=== PATIENT | male | born 1950 | race Caucasian/White ===

== ENCOUNTER 2017-03-20 21:17 | Inpatient (IN) | payer OTHER ==
[~2017-03-20] VITALS: Ht 185.4 cm; Wt 52.8 kg
--- NOTE | ~2017-03-20 | 2DMMODE ---
[facility] [address] [facility] [employer] [place] [address] 2 D/M-MODE ECHOCARDIOGRAM Name: EDWINA COOK Room #: 247-P ADM IN .R.#: [id number] Admission: 03/20/17 Attend Phys: Milton Fenton Discharge: Date of : 46 Date of Service: 03/24/17 1039 Report #: [id number] THIS REPORT FOR: //name// APPROVED REPORT Study performed: 03/24/2017 08:31:33 EXAM: Comprehensive 2D, Doppler, and color-flow Echocardiogram Patient Location: Bedside Room #: 247 Status: routine Other Information Study Quality: Good Indications Elevated troponin. Hx: HTN, tobacco 2D Dimensions RVDd: 24.87 mm LVEF(%): 43.95 (>50%) IVSd: 13.14 (7-11mm) LVOT Diam: 24.18 (18-24mm) LVDd: 43.90 mm PWd: 7.62 (7-11mm) Ascending Ao: 29.27 (22-36mm) LVDs: 34.43 (25-40mm) Aortic Root: 34.56 mm Butts's LVEF: 43.95 % Volumes Left Atrial Volume (Systole) Single Plane 4CH: 32.35 mL Single Plane 2CH: 69.42 mL LA ESV Index: 33.00 mL/m2 Aortic Valve AoV Peak Jeferson.: 1.27 m/s AO Peak Gr.: 6.49 mmHg LVOT Max P.71 mmHg LVOT Max V: 0.96 m/s MEGAN Vmax: 3.47 cm2 Mitral Valve E/A Ratio: 1.6 MV Decel. Time: 100.00 ms MV E Max Jeferson.: 0.76 m/s MV A Jeferson.: 0.49 m/s MV PHT: 29.00 ms IVRT: 107.27 ms [facility] [place] [address] 2 D/M-MODE ECHOCARDIOGRAM Name: EDWINA COOK Room #: 247-P [facility]#: [id number] Admission: 03/20/17 Attend Phys: Milton Fenton Discharge: Date of : 46 Date of Service: 03/24/17 1039 Report #: [id number] Pulmonary Valve PV Peak Jeferson.: 1.07 m/s PV Peak Gr.: 4.57 mmHg Pulmonary Vein P Vein S: 0.67 m/s P Vein D: 0.86 m/s P Vein S/D Ratio: 0.78 Tricuspid Valve TR Peak Jeferson.: 3.42 m/s RAP Estimate: 10.00 mmHg TR Peak Gr.: 46.81 mmHg PA Pressure: 57.00 mmHg Left Ventricle The left ventricle is normal size. Hypokinesis of inferolateral wall. Mild concentric left ventricular hypertrophy. Left ventricular systolic function is mildly decreased. LVEF is 45%. This study is not technically sufficient to allow evaluation of the LV diastolic function. Right Ventricle The right ventricle is normal size. Right ventricle is mildly hypokinetic. Atria Left atrium is dilated. Right atrium is dilated. Aortic Valve The aortic valve is normal in structure. No aortic regurgitation. There is no aortic valvular stenosis. Mitral Valve The mitral valve is normal in structure. Mild to moderate mitral regurgitation. No evidence of mitral valve stenosis. Tricuspid Valve The tricuspid valve is normal in structure. There is moderate tricuspid regurgitation. The right atrial pressure is estimated at 10 mmHg. There is moderate pulmonary hypertension with an estimated PAP of 57mmHg. Pulmonic Valve The pulmonary valve is normal in structure. Mild pulmonic regurgitation. [place] [id number] 2 D/M-MODE ECHOCARDIOGRAM Name: JOEYEDWINA Nelson Room #: 247-P [facility].#: [id number] Admission: 03/20/17 Attend Phys: Milton Fenton Discharge: Date of : 46 Date of Service: 03/24/17 1039 Report #: [id number] Great Vessels The aortic root is normal in size. IVC is normal in size and collapses <50% with inspiration. Pericardium Moderatel pericardial effusion noted. Large left pleural effusion noted. <Conclusion> Left ventricular systolic function is mildly decreased. LVEF is 45%. Hypokinesis of inferolateral wall. Both atria are mildly dilated. The aortic valve is normal in structure. No aortic valvular stenosis. No aortic regurgitation. The mitral valve is normal in structure. Mild to moderate mitral regurgitation. There is moderate pulmonary hypertension with an estimated PAP of 57mmHg. Moderatel pericardial effusion noted. Large left pleural effusion noted. <ELECTRONICALLY SIGNED> By: Telly Pa MD, [facility] 03/24/17 1039 1039 1039 Telly Pa MD, FAC /INF
--- NOTE | ~2017-03-20 | EKG ---
[address] [address] ELECTROCARDIOGRAM REPORT Name: EDWINA COOK Room #: 461- ADM IN M.R.#: [id number] Admission: 03/20/17 Attend Phys: Milton Carter Discharge: Date of : 46 Report #: [id number] THIS REPORT FOR: //name// [facility] Test Date: 2017-03-27 Test Time: 17:26:44 Pat Name: EDWINA COOK Department: Room: 461 Gender: M [employer] Sniper: DANIEL : 1950 Requested By: Milton Carter Order Number: [id number] MD: Jack France Measurements Intervals [place] Rate: 167 P: 84 [place]: 136 QRS: 86 QRSD: 97 T: 83 QT: 311 QTc: 519 Interpretive Statements Supraventricular tachycardia LVH with secondary repolarization abnormality Anterior infarct, old ST depression, probably rate related Electronically Signed On 03-27-2017 22:07:45 CDT by Jack France [email or web address] <ELECTRONICALLY SIGNED> By: Jack France MD 03/27/177 25 25 Jack France MD /JEANE
--- NOTE | ~2017-03-20 | EKG ---
[address] [address] ELECTROCARDIOGRAM REPORT Name: EDWINA COOK Room #: 247-P ADM IN M.R.#: [id number] Admission: 03/20/17 Attend Phys: Milton Carter Discharge: Date of : 46 Report #: [id number] THIS REPORT FOR: //name// [facility] Test Date: 2017-03-24 Test Time: 02:53:58 Pat Name: EDWINA COOK Department: Room: [facility] Gender: M Supervisor Assembling: . : 1950 Requested By: Taty Chester Order Number: [id number] MD: Jack France Measurements Intervals [place] Rate: 88 P: 85 [place]: 142 QRS: 95 QRSD: 94 T: 80 QT: 374 QTc: 453 Interpretive Statements Sinus rhythm Left atrial enlargement Right axis deviation Baseline wander in lead(s) V3 Compared to ECG 03/20/2017 21:47:36 Right-axis deviation now present Atrial premature complex(es) no longer present Q waves no longer present Myocardial infarct finding no longer present Electronically Signed On 03-24-2017 14:40:16 CDT by Jack France [email or web address] <ELECTRONICALLY SIGNED> By: Jack France MD 03/24/17 1440 2 2 Jack France MD /EPI
--- NOTE | ~2017-03-20 | HC ---
[facility] [address] [address] CONSULTATION Name: EDWINA COOK Room #: 461-P ADM IN M.R.#: [id number] Admission: 03/20/17 Attend Phys: Milton Carter Discharge: Date of : 46 Report #: [id number] THIS REPORT FOR: //name// CC: Milton Brandt Singh DATE OF SERVICE: 03/23/2017 HISTORY OF PRESENT ILLNESS: The patient is a 66-year-old white male who fell at home and was unable to get up. His had noted that he was gradually becoming weaker and weaker and had 8 falls. She indicated she had finally "had enough." He also has had a 30-pound weight loss over the past year. Upon admission, radiographic evaluation revealed a left lung mass with possible underlying pneumonia. He was seen by Psychiatry, diagnosed with depression with recommendations for Remeron. There also were recommendations for the patient to nominate the DPOA. The patient's Plavix has been held and the plan is for a bronchial biopsy in a couple of days. He is very weak and debilitated and we are seeing him in rehabilitation medicine consultation. Apparently, he has lost up to 100 pounds per chart notes as he is now 6 feet 1 and only weighs 98 pounds. PAST MEDICAL HISTORY: Includes polio as a child with some mild residual left-sided weakness, did not need to utilize gait aids or any bracing; history of hypertension, bilateral hernia repair surgery, anxiety; smoker, stopped 1 month ago; GERD, depression, 2 stents in his leg for which he was taking Plavix. HABITS: Former smoker. He did smoke 1 pack per day for 20 years. No history of ETOH abuse. ALLERGIES: No known drug allergies. FAMILY HISTORY: Noncontributory. SOCIAL HISTORY: House, spouse, one step in. Did not utilize gait aids. Notes indicate that family has been unable to meet the patient's care needs as he was not allowing them to help. REVIEW OF SYSTEMS: No current complaints of chest pain, shortness of breath or abdominal discomfort. His main complaint is being overall weak. Did not offer any focal extremity pain complaints. No complaints of headache or bowel or bladder changes. PHYSICAL EXAMINATION: GENERAL: A 66-year-old white male, very thin and cachectic. He is alert, currently on nasal prong O2. VITAL SIGNS: Last recorded temperature 97.5, pulse 90, respirations 20, blood [address] [address] CONSULTATION Name: EDWINA COOK Room #: 461-P [facility]#: [id number] Admission: 03/20/17 Attend Phys: Milton Carter Discharge: Date of : 46 Report #: [id number] pressure 141/92. NEUROLOGIC: Facies are symmetric. He has functional range of motion of both upper extremities with strength grade 3+/5. DTRs are trace to 1. Lower extremities, no focal calf swelling, functional range of motion with strength grade 3+/5. DTRs are trace to 1. He is min assist with sit to stand. He is ambulating 50 feet min assist with a front-wheeled walker. ASSESSMENT: A 66-year-old white male with the following problem list: 1. Generalized weakness and debilitation with multiple recent falls. 2. Left lung mass, probable carcinoma. To have bronchoscopy. Plavix is currently on hold. 3. Pneumonia, post-obstructive. 4. Hyponatremia, likely syndrome of inappropriate antidiuretic hormone secretion. The patient apparently has had some chronic low sodium. 5. Chronic obstructive pulmonary disease. 6. Hypertension. 7. Depression. 8. Past history of tobacco abuse. PLAN: The patient is continuing to work in therapies. He is to have the endoscopy later this week. We will follow along with you regarding his rehab therapy needs. <ELECTRONICALLY SIGNED> By: Joe Cho MD 03/29/17 1518 1415 0134 Joe Cho MD /nt
--- NOTE | ~2017-03-20 | HC ---
[facility] [place] [address] CONSULTATION Name: EDWINA COOK Room #: 427-P ADM IN M.R.#: [id number] Admission: 03/20/17 Attend Phys: Milton Carter Discharge: Date of : 46 Report #: [id number] THIS REPORT FOR: //name// CC: Milton Winters PRIMARY CARE PHYSICIAN: Dr. Oswaldo Holguin. REFERRING PHYSICIAN: Dr. Milton Carter. REASON FOR REFERRAL: Lung mass. HISTORY OF PRESENT ILLNESS: The patient is a 66-year-old white male who was brought to the Emergency Room with progressive weakness and follow. Chest x-ray and chest CT showed abnormalities. A pulmonary consultation was requested. The patient states that he has been losing weight for the past year. This occurred following his inguinal herniorrhaphy about a year ago. He states that he has just lost his appetite. The patient also has smoked 4 packs a day. He quit less than a month ago. He has known COPD. Otherwise, he has been getting progressively weaker over the past year. He denies any chest pain, night sweats or chills or productive cough or hemoptysis. Chest x-ray and chest CT performed in the Emergency Room showed a large left hilar mass with mediastinal involvement, with extension of the lung mass to the portion of the thoracic spine, small left-sided pleural effusion. Renal cysts are noted. Liver cyst is also noted. There is a questionable liver lesion, but it is likely a liver cyst. PAST MEDICAL HISTORY: Remarkable for polio lifelong with left-sided weakness, tobacco abuse, smoking at least 4 packs a day for most of his life until about a month ago when he quit, hypertension, gastroesophageal reflux disease, depression, peripheral vascular disease, undergoing stent placement in his lower extremities. PAST SURGICAL HISTORY: Include bilateral herniorrhaphy in 2016, bilateral eye surgery and as also mentioned above. ALLERGIES: None to medications. HOME MEDICATIONS: Include nicotine patch, diltiazem, Xanax, Toprol-XL, Protonix, Plavix and Zestril. FAMILY HISTORY: Notable for breast cancer in mother who in the 50s. [facility] [address] [place] [address] CONSULTATION Name: EDWINA COOK Room #: 427-P [facility] .R.#: [id number] Admission: 03/20/17 Attend Phys: Milton Carter Discharge: Date of : 46 Report #: [id number] SOCIAL HISTORY: He is , lives with family. Tobacco history: As above. He denies any alcohol use. He used to work in [employer]. REVIEW OF SYSTEMS: As mentioned above, otherwise 10-point system review negative. PHYSICAL EXAMINATION: GENERAL: He is awake and alert, who appears quite weak. He appears moderately emaciated with muscle atrophy. VITAL SIGNS: Temperature is 98 degrees Fahrenheit, pulse is 73, respiratory rate is 20, blood pressure 140/91 mmHg, saturation is 99% on supplemental O2. HEENT: Normocephalic, atraumatic. NECK: Supple, without any lymphadenopathy or thyromegaly. CHEST: Breath sounds are fair. No obvious wheezes or rales. CARDIOVASCULAR: Heart sounds, normal S1, S2. There are no murmurs or gallop. There is no JVD. There is no carotid bruit. Pulses are 2+/4+ bilaterally. ABDOMEN: Soft, nontender, no organomegaly or masses felt. GENITOURINARY: Deferred. RECTAL: Deferred. EXTREMITIES: There is no edema, cyanosis or clubbing. MUSCULOSKELETAL: Remarkable for moderate muscle atrophy/cachexia. LABORATORY DATA: CT chest and chest x-ray as mentioned above. Sodium 122, potassium 4.0, chloride 84, CO2 is 35, BUN is 8, creatinine 0.4, alkaline phosphatase 131, WBC 24,400, hemoglobin is 12.6, platelets are mildly increased. No bandemia is noted. Albumin 1.8. IMPRESSION: 1. Left hilar lung mass in this 66-year-old white male with mediastinal involvement along with possible thoracic spine involvement. He has had a progressive weight loss over the past year. The patient has smoked about four packs a day for most of his life until about a month ago. 2. 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 3. 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 4. Acute hypoxic respiratory failure. 5. Profound protein-calorie malnutrition, cachexia due to above. 6. Hyponatremia. 7. Leukocytosis, may be reactive, but cannot rule out component of post-obstructive pneumonia. 8. Hypertension. 9. Gastroesophageal reflux disease. 10. Depression. 11. Polio as a childhood with chronic left-sided weakness. 12. Peripheral vascular disease, undergoing stent placement, has been on Plavix. [facility] [address] [place] [address] CONSULTATION Name: EDWINA COOK Room #: 427-P ADM IN M.R.#: [id number] Admission: 03/20/17 Attend Phys: Milton Carter Discharge: Date of : 46 Report #: [id number] RECOMMENDATION AND DISCUSSION: Discussed the above findings with the patient and rationale for proceeding with diagnostic bronchoscopy. Risks and benefits were discussed, which include infection, bleeding and pneumothorax. The patient and family voice understanding. Plavix will be on hold. Bronchoscopy will be scheduled later this week. Continue bronchodilators, empiric antibiotics. We will also start low-dose corticosteroids, given severe COPD. DVT and GI prophylaxis will be addressed. For now, we will also address nutritional support given profound weight loss and malnutrition. Thank you for this consultation. <ELECTRONICALLY SIGNED> By: Gentry Leon MD 03/23/17 1732 1144 2150 Gentry Leon MD /nt
--- NOTE | ~2017-03-20 | EKG ---
[address] [place] [address] ELECTROCARDIOGRAM REPORT Name: JOEYEDWINA Leslie Room #: 460-P ADM IN M.R.#: [id number] Admission: 03/20/17 Attend Phys: Milton Carter Discharge: Date of : 46 Report #: [id number] THIS REPORT FOR: //name// [facility] ED Test Date: 2017-03-20 Test Time: 21:47:36 Pat Name: EDWINA COOK Department: Room: [facility] Gender: M [employer]: Mariza HOFFMAN : 1950 Requested By: Alisia Bill Order Number: [id number] MD: Telly Pa Measurements Intervals [place] Rate: 76 P: 84 [place]: 145 QRS: 96 QRSD: 97 T: 80 QT: 405 QTc: 456 Interpretive Statements Sinus rhythm Atrial premature complexes Left atrial enlargement Abnormal lateral Q waves Anterior infarct, old Compared to ECG 09/30/2010 14:19:27 Atrial premature complex(es) now present Q waves now present Electronically Signed On 03-21-2017 8:32:15 CDT by Telly Pa [email or web address] <ELECTRONICALLY SIGNED> By: Telly Pa MD, [facility] 03/21/17 0832 2147 2147 Telly Pa MD, [facility] /EPI
--- NOTE | ~2017-03-20 | CNG ---
[facility] [place] [address] CYTO-NONGYN REPORT PROCEDURE Name: SEVERO COOK Room #: 461-P ADM IN M.R.#: [id number] Admission: 03/20/17 Date of : 46 Discharge: Report #: [id number] Path Case #: [id number] CYTOPATHOLOGY REPORT COLLECTION DATE: 03/24/2017 RECEIVED DATE: 03/24/2017 SUBMITTING PHYS: Dr. Gentry Leon OTHER PHYS: Dr. Milton Winters CLINICAL HISTORY: Fall, weight loss, weakness. SPECIMEN(S) RECEIVED: A.Pleural fluid, Left * * * * * * * * * * * * FINAL DIAGNOSIS: Left Pleural fluid: - No malignant cells identified. - Reactive mesothelial cells and inflammatory cells present. COMMENT: Examination showed groups of cells forming clusters as well as glandular structures. Immunohistochemical stains are performed due to the provided history of lung mass. (Cell block) Calretinin: Reactive within the groups of cells Desmin: Reactive within the groups of cells Catarino-EP4: Non-reactive D2-40: Reactive TTF-1: Non-reactive Napsin A: Non-reactive Based on the immunohistochemical stains, the groups of cells identified likely represent reactive mesothelial cells. The cells; however are scant in nature. Co-review: Dr. Sheree Richards (IUV:mgr; d/t: 03/28/17) PATHOLOGIST: Roxanna Chadwick M.D. REPORT ELECTRONICALLY SIGNED BY: Roxanna Chadwick M.D. DATE/TIME: 03/28/2017 17:21 * * * * * * * * * * * * GROSS PATHOLOGY: A. Pleural fluid, Left: The specimen is submitted unfixed, labeled "Severo Cook". Received by the Cytology Department is 30 mL of clear yellow fluid. One ThinPrep slide and a cell block were prepared. (clt 03.24.2017) [address] [address] CYTO-NONGYN REPORT PROCEDURE Name: SEVERO COOK Room #: 461-P [facility] IN ..#: [id number] Admission: 03/20/17 Date of : 46 Discharge: Report #: [id number] Path Case #: [id number] [employer] EMPLOYEE(S): SHAYY Ferguson(ASCP)IAC INITIAL CPT CODE(S): A; 26294, 68466, 30914, 21138, 13632, 04123, 16857, 78410 Professional services performed by [facility] at [address] , [place] [address] Technical services performed by [facility] at [address] [place] [address]., [address], [place] [address]. [facility] [address] [place] [address], [address] [place] [address] PHONE: [phone] DIRECTOR: Victorino Garcia M.D. * * * END OF REPORT * * *
[~2017-03-20 21:17] MED LIST: AMBIEN 10 MG TA10 MG PO; AMLODIPINE-BEN1 EACH PO; ATIVAN1 MG PO; AUGMENTIN 875875 M1; AVELOX 400 MG400 MG; DIOVAN160 MG PO; LEXAPRO 10 MG T10 MG PO; NEXIUM20 M1; NEXIUM20 M1 PO; NEXIUM40 MG; NICOTINE TRANSD21 M1 TD; SODIUM CHLORIDE1 G2; TOPROL XL100 MG PO
[2017-03-20 21:20] VITALS: BP 110/70
[2017-03-20 22:07] VITALS: BP 133/77
[2017-03-20] MEDS ORDERED: TOPROL XL100 MG PO (22:19)
[2017-03-20] MEDS ORDERED: PANTOPRAZOLE SO40 M1 PO (22:19)
[2017-03-20] MEDS ORDERED: CARDIZEM CD120 MG PO (22:19)
[2017-03-20] MEDS ORDERED: XANAX1 MG PO (22:19)
[2017-03-20] MEDS ORDERED: PLAVIX 75 MG TA75 M1 PO (22:19)
[2017-03-20] MEDS ORDERED: LISINOPRIL20 MG PO (22:20)
[2017-03-20 22:59] LABS: HEMATOCRIT 37.6 % (42.0-52.0); HEMOGLOBIN 12.6 gm/dL (14.0-18.0); MANUAL DIFF YES; MCH 30.2 pg (26.0-34.0); MCHC 33.5 g/dL (28.0-37.0); PLATELET COUNT 432 thou/uL (150-400); RBC 4.18 mil/uL (4.50-6.00); RDW 13.4 % (10.5-14.5); WBC 24.4 thou/uL (4.0-11.0)
[2017-03-20 23:04] LABS: ANION GAP < 0 mmol/L (7-16); BUN 8 mg/dL (7-18); CALCIUM 8.1 mg/dL (8.5-10.1); CHLORIDE 86 mmol/L (98-107); CO2 37 mmol/L (21-32); CREATININE 0.4 mg/dL (0.7-1.3); GLUCOSE 122 mg/dL (74-106); SODIUM 122 mmol/L (136-145)
[2017-03-20 23:41] LABS: INR 1.2
[2017-03-20 23:45] LABS: ABSOLUTE NEUTROPHILS 23.2 thou/uL (1.4-8.2); TOTAL CELL COUNT 100
[2017-03-21] VITALS (7 sets, daily range): BP systolic 112–157; BP diastolic 56–106
[2017-03-21] MEDS ORDERED: CARTIA XT120 M1 PO (01:33)
[2017-03-21 02:04] LABS: HEMATOCRIT 37.4 % (42.0-52.0); HEMOGLOBIN 12.8 gm/dL (14.0-18.0); MCH 30.7 pg (26.0-34.0); MCHC 34.2 g/dL (28.0-37.0); MCV 89.6 fL (80.0-100.0); RBC 4.18 mil/uL (4.50-6.00); RDW 13.5 % (10.5-14.5); WBC 23.6 thou/uL (4.0-11.0)
[2017-03-21 02:17] LABS: CALCIUM 8.2 mg/dL (8.5-10.1); CREATININE 0.4 mg/dL (0.7-1.3)
[2017-03-21 02:22] LABS: ALBUMIN 1.8 g/dL (3.4-5.0); TOTAL BILIRUBIN 0.7 mg/dL (<0.1-1.0); TOTAL PROTEIN 5.6 g/dL (6.4-8.2)
[2017-03-21 02:33] LABS: ALBUMIN 1.9 g/dL (3.4-5.0); DIRECT BILIRUBIN 0.2 mg/dL (<0.1-0.3); TOTAL BILIRUBIN 0.7 mg/dL (<0.1-1.0); TOTAL PROTEIN 5.9 g/dL (6.4-8.2)
[2017-03-21 13:40] LABS: % SATURATION 16 % (20-39); IRON 24 ug/dL (65-175); TIBC 150 ug/dL (250-450); UIBC 126 ug/dL
[2017-03-22 04:56] LABS: ALBUMIN 1.7 g/dL (3.4-5.0); CALCIUM 7.6 mg/dL (8.5-10.1); CREATININE 0.4 mg/dL (0.7-1.3); MAGNESIUM 1.4 mg/dL (1.8-2.4); POTASSIUM 4.2 mmol/L (3.5-5.1); TOTAL BILIRUBIN 0.5 mg/dL (<0.1-1.0); TOTAL PROTEIN 5.2 g/dL (6.4-8.2)
[2017-03-22 05:03] VITALS: BP 127/79
[2017-03-22 07:07] VITALS: BP 119/78
[2017-03-22 10:04] LABS: URINE BILIRUBIN NEGATIVE (Negative); URINE BLOOD NEGATIVE (Negative); URINE COLOR YELLOW; URINE GLUCOSE-RANDOM* NEGATIVE (Negative); URINE KETONES NEGATIVE (Negative); URINE LEUKOCYTES-REFLEX NEGATIVE (Negative); URINE PROTEIN (DIPSTICK) TRACE (Negative); URINE SPECIFIC GRAVITY 1.025 (1.003-1.035); URINE UROBILINOGEN 0.2 E.U./dl (0.2-1.0)
[2017-03-22 15:16] VITALS: BP 119/68
[2017-03-22 20:00] VITALS: BP 136/86
[2017-03-23 03:42] VITALS: BP 143/94
[2017-03-23 05:13] LABS: HEMATOCRIT 37.9 % (42.0-52.0); HEMOGLOBIN 12.6 gm/dL (14.0-18.0); MCH 30.6 pg (26.0-34.0); MCHC 33.3 g/dL (28.0-37.0); MCV 91.7 fL (80.0-100.0); PLATELET COUNT 462 thou/uL (150-400); RBC 4.13 mil/uL (4.50-6.00); RDW 13.7 % (10.5-14.5)
[2017-03-23 05:16] LABS: MANUAL DIFF YES
[2017-03-23 05:32] LABS: ALBUMIN 1.7 g/dL (3.4-5.0); CALCIUM 8.5 mg/dL (8.5-10.1); CREATININE 0.4 mg/dL (0.7-1.3); MAGNESIUM 1.6 mg/dL (1.8-2.4); PHOSPHORUS 3.6 mg/dL (2.5-4.9); POTASSIUM 4.9 mmol/L (3.5-5.1)
[2017-03-23 06:46] LABS: ABSOLUTE NEUTROPHILS 18.4 thou/uL (1.4-8.2); TOTAL CELL COUNT 100
[2017-03-23 08:52] VITALS: BP 141/92
[2017-03-23 16:00] VITALS: BP 119/74
[2017-03-23 20:00] VITALS: BP 125/81
[2017-03-24] VITALS (46 sets, daily range): BP systolic 90–166; BP diastolic 59–127
[2017-03-24 01:17] LABS: ABG SAMPLE TYPE ARTERIAL; BE(vivo) 5.9 mmol/L (-2 to +3); HCO3 34.3 mmol/L (22.0-26.0); O2(CT) 14.6 mL/dL (15.0-23.0); sO2 72.7 % (92.0-98.0); tCO2 36.4 mmol/L (24.0-30.0)
[2017-03-24 01:18] LABS: O2Hb 77.2 % (92.0-98.0); PCO2 68.8 mmHg (35.0-45.0); STICK SITE RRA; pH 7.316 (7.360-7.450)
[2017-03-24 01:20] LABS: ABG COMMENT PT ON NRB; PO2 42.8 mmHg (80.0-100.0)
[2017-03-24 01:26] LABS: HEMATOCRIT 37.5 % (42.0-52.0); HEMOGLOBIN 12.7 gm/dL (14.0-18.0); MCH 30.5 pg (26.0-34.0); MCHC 33.7 g/dL (28.0-37.0); MCV 90.4 fL (80.0-100.0); RBC 4.15 mil/uL (4.50-6.00); WBC 25.7 thou/uL (4.0-11.0)
[2017-03-24 01:38] LABS: ANION GAP < 0 mmol/L (7-16); BUN 10 mg/dL (7-18); CALCIUM 8.6 mg/dL (8.5-10.1); CHLORIDE 92 mmol/L (98-107); CO2 38 mmol/L (21-32); CREATININE 0.4 mg/dL (0.7-1.3); GLUCOSE 144 mg/dL (74-106); POTASSIUM 4.6 mmol/L (3.5-5.1); SODIUM 128 mmol/L (136-145)
[2017-03-24 01:44] LABS: ALBUMIN 1.7 g/dL (3.4-5.0); ALKALINE PHOSPHATASE 100 U/L (46-116); SGOT 84 U/L (15-37); SGPT 57 U/L (30-65); TOTAL BILIRUBIN 0.4 mg/dL (<0.1-1.0)
[2017-03-24 01:53] LABS: TROPONIN-I 7.76 ng/mL (<0.04-0.07)
[2017-03-24 03:32] LABS: ABG SAMPLE TYPE ARTERIAL; BE(vivo) 11.1 mmol/L (-2 to +3); HCO3 40.5 mmol/L (22.0-26.0); LACTATE 1.09 mmol/L (0.5-2.0); O2(CT) 17.6 mL/dL (15.0-23.0); O2Hb 97.1 % (92.0-98.0); PO2 113.8 mmHg (80.0-100.0); sO2 97.6 % (92.0-98.0)
[2017-03-24 03:33] LABS: FIO2 100 %; PCO2 81.4 mmHg (35.0-45.0); STICK SITE RRA; pH 7.315 (7.360-7.450)
[2017-03-24 03:34] LABS: ABG COMMENT BIPAP16/6 14 100%; Pressure Support 16 cm H20
[2017-03-24 07:31] LABS: ABG SAMPLE TYPE ARTERIAL; BE(vivo) 12.6 mmol/L (-2 to +3); HCO3 41.1 mmol/L (22.0-26.0); LACTATE 0.78 mmol/L (0.5-2.0); O2(CT) 18.4 mL/dL (15.0-23.0); O2Hb 96.9 % (92.0-98.0); PO2 99.3 mmHg (80.0-100.0); pH 7.368 (7.360-7.450); sO2 97.1 % (92.0-98.0); tCO2 43.4 mmol/L (24.0-30.0)
[2017-03-24 07:32] LABS: PCO2 73.1 mmHg (35.0-45.0); Pressure Support 16 cm H20; STICK SITE R.RADIAL
[2017-03-24 07:36] LABS: HEMATOCRIT 45.2 % (42.0-52.0); MCH 30.3 pg (26.0-34.0); MCHC 32.7 g/dL (28.0-37.0); MCV 92.6 fL (80.0-100.0); RBC 4.88 mil/uL (4.50-6.00); WBC 20.3 thou/uL (4.0-11.0)
[2017-03-24 07:50] LABS: HEMOGLOBIN 14.8 gm/dL (14.0-18.0)
[2017-03-24 07:58] LABS: CREATININE 0.4 mg/dL (0.7-1.3); POTASSIUM 4.7 mmol/L (3.5-5.1)
[2017-03-24 08:58] LABS: CHOLESTEROL 159 mg/dL (<200); HDL CHOLESTEROL 54 mg/dL (>40); LDL CHOLESTEROL 88 mg/dL (<100); TC:HDL 2.9 Ratio (Not establshd); TRIGLYCERIDE 85 mg/dL (<150); VLDL 17 mg/dL (<40)
[2017-03-24 14:29] LABS: CLARITY SLIGHTLY CLOUDY; COLOR YELLOW; TOTAL VOLUME 60 mL
[2017-03-24 14:30] LABS: BF NUCLEATED CELLS 1614; BF RBC 497
[2017-03-24 16:06] LABS: BF COMMENTS 0; BF MACROPHAGE 9; BF NEUTROPHILS 76; MANUAL DIFF YES
[2017-03-25] VITALS (54 sets, daily range): BP systolic 85–163; BP diastolic 54–108
[2017-03-25 05:08] LABS: HEMATOCRIT 38.6 % (42.0-52.0); HEMOGLOBIN 12.9 gm/dL (14.0-18.0); MCH 30.2 pg (26.0-34.0); MCHC 33.3 g/dL (28.0-37.0); MCV 90.5 fL (80.0-100.0); RBC 4.26 mil/uL (4.50-6.00); RDW 13.5 % (10.5-14.5); WBC 18.7 thou/uL (4.0-11.0)
[2017-03-25 05:23] LABS: CALCIUM 8.6 mg/dL (8.5-10.1); CREATININE 0.4 mg/dL (0.7-1.3); POTASSIUM 4.3 mmol/L (3.5-5.1)
[2017-03-25 15:10] LABS: BODY FLUID ALBUMIN 0.7 g/dL (()); BODY FLUID AMYLASE 14 U/L (()); BODY FLUID GLUCOSE 110 mg/dL (()); BODY FLUID LDH 68 IU/L (()); BODY FLUID PROTEIN 1.6 g/dL (())
[2017-03-26] VITALS (18 sets, daily range): BP systolic 113–175; BP diastolic 76–139
[2017-03-26 06:21] LABS: HEMATOCRIT 43.5 % (42.0-52.0); HEMOGLOBIN 14.6 gm/dL (14.0-18.0); MCH 30.6 pg (26.0-34.0); MCHC 33.7 g/dL (28.0-37.0); MCV 90.9 fL (80.0-100.0); RBC 4.79 mil/uL (4.50-6.00); RDW 13.5 % (10.5-14.5); WBC 14.5 thou/uL (4.0-11.0)
[2017-03-26 06:32] LABS: ANION GAP < 0 mmol/L (7-16); BUN 12 mg/dL (7-18); CALCIUM 9.1 mg/dL (8.5-10.1); CHLORIDE 88 mmol/L (98-107); CO2 44 mmol/L (21-32); CREATININE 0.5 mg/dL (0.7-1.3); GLUCOSE 92 mg/dL (74-106); POTASSIUM 4.8 mmol/L (3.5-5.1); SODIUM 131 mmol/L (136-145)
[2017-03-26 10:59] LABS: TOTAL BILIRUBIN 0.8 mg/dL (<0.1-1.0); TOTAL PROTEIN 6.6 g/dL (6.4-8.2)
[2017-03-26 11:43] LABS: DIRECT BILIRUBIN 0.2 mg/dL (<0.1-0.3)
[2017-03-26 14:10] LABS: MAGNESIUM 1.8 mg/dL (1.8-2.4); PHOSPHORUS 4.4 mg/dL (2.5-4.9)
[2017-03-27 05:00] LABS: ALBUMIN 1.8 g/dL (3.4-5.0); ALKALINE PHOSPHATASE 80 U/L (46-116); ANION GAP < 0 mmol/L (7-16); BUN 16 mg/dL (7-18); CALCIUM 8.6 mg/dL (8.5-10.1); CHLORIDE 88 mmol/L (98-107); CO2 43 mmol/L (21-32); CREATININE 0.4 mg/dL (0.7-1.3); GLUCOSE 130 mg/dL (74-106); POTASSIUM 4.1 mmol/L (3.5-5.1); SGOT 35 U/L (15-37); SGPT 52 U/L (30-65); SODIUM 129 mmol/L (136-145); TOTAL BILIRUBIN 0.7 mg/dL (<0.1-1.0); TOTAL PROTEIN 5.5 g/dL (6.4-8.2)
[2017-03-27 05:22] LABS: ABG SAMPLE TYPE ARTERIAL; HCO3 43.5 mmol/L (22.0-26.0); LACTATE 1.04 mmol/L (0.5-2.0); O2(CT) 17.8 mL/dL (15.0-23.0); O2Hb 91.5 % (92.0-98.0); PCO2 58.5 mmHg (35.0-45.0); PO2 64.1 mmHg (80.0-100.0); STICK SITE LRA; pH 7.489 (7.360-7.450); sO2 93.4 % (92.0-98.0); tCO2 45.3 mmol/L (24.0-30.0)
[2017-03-27 07:50] VITALS: BP 134/86
[2017-03-27 11:11] LABS: PHOSPHORUS 3.5 mg/dL (2.5-4.9)
[2017-03-27 11:48] VITALS: BP 139/95
[2017-03-27 16:04] VITALS: BP 135/89
[2017-03-27 19:07] VITALS: BP 135/88
[2017-03-27 23:26] VITALS: BP 139/84
[2017-03-28 04:50] VITALS: BP 151/90
[2017-03-28 05:32] LABS: MCH 30.2 pg (26.0-34.0); MCHC 33.1 g/dL (28.0-37.0); MCV 91.1 fL (80.0-100.0); PLATELET COUNT 351 thou/uL (150-400); RBC 3.95 mil/uL (4.50-6.00); RDW 13.5 % (10.5-14.5); WBC 21.3 thou/uL (4.0-11.0)
[2017-03-28 05:45] LABS: HEMOGLOBIN 11.9 gm/dL (14.0-18.0); MANUAL DIFF YES
[2017-03-28 06:03] LABS: ALBUMIN 1.8 g/dL (3.4-5.0); CALCIUM 8.1 mg/dL (8.5-10.1); CREATININE 0.4 mg/dL (0.7-1.3); PHOSPHORUS 3.2 mg/dL (2.5-4.9); POTASSIUM 3.8 mmol/L (3.5-5.1); TOTAL BILIRUBIN 0.6 mg/dL (<0.1-1.0); TOTAL PROTEIN 5.6 g/dL (6.4-8.2)
[2017-03-28 07:09] LABS: ABG SAMPLE TYPE ARTERIAL; BE(vivo) 14.2 mmol/L (-2 to +3); HCO3 40.3 mmol/L (22.0-26.0); LACTATE 1.27 mmol/L (0.5-2.0); O2(CT) 17.5 mL/dL (15.0-23.0); O2Hb 95.9 % (92.0-98.0); PCO2 57.1 mmHg (35.0-45.0); PO2 89.2 mmHg (80.0-100.0); STICK SITE L.RADIAL; pH 7.467 (7.360-7.450); tCO2 42.1 mmol/L (24.0-30.0)
[2017-03-28 07:53] LABS: TOTAL CELL COUNT 100
[2017-03-28 08:00] VITALS: BP 134/79
[2017-03-28 11:08] VITALS: BP 144/92
[2017-03-28 16:00] VITALS: BP 149/86
[2017-03-29 03:24] VITALS: BP 109/59
[2017-03-29 04:22] LABS: HEMATOCRIT 34.1 % (42.0-52.0); HEMOGLOBIN 11.3 gm/dL (14.0-18.0); MCH 30.3 pg (26.0-34.0); MCHC 33.2 g/dL (28.0-37.0); MCV 91.4 fL (80.0-100.0); PLATELET COUNT 294 thou/uL (150-400); RBC 3.73 mil/uL (4.50-6.00); RDW 13.5 % (10.5-14.5); WBC 22.5 thou/uL (4.0-11.0)
[2017-03-29 04:30] LABS: MANUAL DIFF YES
[2017-03-29 07:17] LABS: ABG SAMPLE TYPE ARTERIAL; BE(vivo) 6.6 mmol/L (-2 to +3); HCO3 34.9 mmol/L (22.0-26.0); O2(CT) 15.3 mL/dL (15.0-23.0); O2Hb 93.5 % (92.0-98.0); PCO2 70.9 mmHg (35.0-45.0); PO2 79.2 mmHg (80.0-100.0); sO2 94.2 % (92.0-98.0); tCO2 37.1 mmol/L (24.0-30.0)
[2017-03-29 07:18] LABS: STICK SITE L.RADIAL
[2017-03-29 08:01] LABS: ABSOLUTE NEUTROPHILS 21.2 thou/uL (1.4-8.2); TOTAL CELL COUNT 100
[2017-03-29 08:02] LABS: ANISOCYTOSIS SLIGHT
[2017-03-29 08:23] VITALS: BP 133/72
[2017-03-29 17:00] VITALS: BP 86/57
[2017-03-29 20:56] VITALS: BP 118/74
[2017-03-30 08:00] VITALS: BP 101/50
[2017-03-30] MEDS ORDERED: DUONEB 2.5-0.5 M3 ML INH (12:13)
[2017-03-30] MEDS ORDERED: ROXANOL 20 M20 MG/ML PO (12:14)
[2017-03-30] MEDS ORDERED: ATROPINE 1% EYE D11 BUCCAL (12:14)
[2017-03-30] MEDS ORDERED: ATIVAN1 M1 PO (12:15)
[2017-03-30 19:30] VITALS: BP 94/68
[2017-03-31 07:49] VITALS: BP 115/68
== END 2017-03-31 14:22 | disposition hospice, inpatient (51) | DRG 177 ==
LOC: ER 21:17 → EROBS 23:26 → 4W 23:26 → 4E 03-21 23:18 → ICU 03-24 02:24 → 4W 03-26 11:18
PROVIDERS: Emergency Medicine; Hospitalist; Internal Medicine Pulmonary Disease; Nurse Practitioner Acute Care; Nurse Practitioner Family; Nurse Practitioner Gerontology
PROC: 0W9B3ZZ Drainage of Left Pleural Cavity, Percutaneous Approach (ICD-10-PCS; principal; 2017-03-24)
PROC: BB4BZZZ Ultrasonography of Pleura (ICD-10-PCS; principal; 2017-03-24)
PROC: 5A09357 Assistance with Respiratory Ventilation, Less than 24 Consecutive Hours, Continuous Positive Airway Pressure (ICD-10-PCS; 2017-03-24)
PROC: 02HV33Z Insertion of Infusion Device into Superior Vena Cava, Percutaneous Approach (ICD-10-PCS; 2017-03-26)
PROC: B548ZZA Ultrasonography of Superior Vena Cava, Guidance (ICD-10-PCS; 2017-03-26)
DX: J69.0 Pneumonitis due to inhalation of food and vomit (principal); I21.4 Non-ST elevation (NSTEMI) myocardial infarction; J96.21 Acute and chronic respiratory failure with hypoxia; G92 Toxic encephalopathy; E43 Unspecified severe protein-calorie malnutrition; C34.92 Malignant neoplasm of unspecified part of left bronchus or lung; E87.1 Hypo-osmolality and hyponatremia; Z68.1 Body mass index [BMI] 19.9 or less, adult; J44.1 Chronic obstructive pulmonary disease with (acute) exacerbation; J90 Pleural effusion, not elsewhere classified; I42.9 Cardiomyopathy, unspecified; I10 Essential (primary) hypertension; K21.9 Gastro-esophageal reflux disease without esophagitis; D72.829 Elevated white blood cell count, unspecified; I73.9 Peripheral vascular disease, unspecified; Z96.1 Presence of intraocular lens; R41.0 Disorientation, unspecified; F41.8 Other specified anxiety disorders; Z51.5 Encounter for palliative care; I27.2 Other secondary pulmonary hypertension; G14 Postpolio syndrome; I48.0 Paroxysmal atrial fibrillation; Z79.82 Long term (current) use of aspirin; Z87.891 Personal history of nicotine dependence; Z80.3 Family history of malignant neoplasm of breast; Z98.62 Peripheral vascular angioplasty status; Z86.12 Personal history of poliomyelitis; Z79.899 Other long term (current) drug therapy
CPT/HCPCS: 10045; 10078; 10783; 27000